=== PATIENT | male | born 1950 | race Two or more races ===

== ENCOUNTER 2019-10-11 20:33 | Inpatient (IN) | payer BC, MEDICARE ==
[~2019-10-11] VITALS: Ht 180.3 cm; Wt 111.2 kg
[2019-10-11] VITALS: BP 114/64
[2019-10-11] MEDS ORDERED: IV NORMAL SALINE 1000 ML BAG IV ONE ×2 (21:00→22:30)
--- NOTE | 2019-10-11 21:00 | NUR ---
noted pauses in breathing while asleep (o2sats maintained at 94% but briefly goes down to 89% during these pauses) supplemental low flow o2 started at 2lpm via nc pt able to sustain 98% o2sat
--- NOTE | 2019-10-11 21:00 | NUR ---
pt brought in by private rescue fr board and care Pt appears sleepy but rousable, with minimal visual tracking, does not follow commands monitored accordingly MD AT BEDSIDE PT ABLE TO SPEAK ONE UNINTELLIGBLE SINGLE WORD AND KEEPS HIS MOUTH OPEN
[2019-10-11 21:09] LABS: BASOPHILS # (AUTO) 0.1 K/uL (0.0-8.0); BASOPHILS % (AUTO) 0.7 % (0.0-2.0); HEMATOCRIT 33.7 % (36.7-47.1); HEMOGLOBIN 11.3 g/dL (12.5-16.3); LYMPHOCYTES # (AUTO) 1.3 K/uL (20.0-40.0); LYMPHOCYTES % (AUTO) 7.9 % (20.5-51.5); MEAN CORPUSCULAR HEMOGLOBIN 30.2 uug (23.8-33.4); MEAN CORPUSCULAR HGB CONC 33 g/dL (32.5-36.3); MEAN CORPUSCULAR VOLUME 90.2 fL (73.0-96.2); MONOCYTES # (AUTO) 3.5 K/uL (2.0-10.0); NEUTROPHILS # (AUTO) 11.8 K/uL (1.8-8.9); NEUTROPHILS % (AUTO) 70.4 % (38.5-71.5); PLATELET COUNT (AUTO) 282 K/uL (152-348); RED BLOOD CELL COUNT(AUTO) 3.73 MIL/uL (4.06-5.63); WHITE BLOOD COUNT (AUTO) 16.8 K/uL (3.6-10.2)
--- NOTE | 2019-10-11 21:13 | NUR ---
pt brought to [facility] acc by [facility] via susanne
[2019-10-11 21:15] LABS: CARBON DIOXIDE 30 mmol/L (21-32); CHLORIDE 106 mmol/L (98-107); GLUCOSE 272 mg/dL (74-106); POTASSIUM 4.1 mmol/L (3.5-5.1); UREA NITROGEN, BLOOD 35 mg/dL (7-18)
[2019-10-11 21:21] LABS: ETHANOL < 3 MG/DL (0-0)
[2019-10-11 21:29] LABS: ALANINE AMINOTRANSFERASE 50 U/L (16-63); ALKALINE PHOSPHATASE 85 U/L (50-136); ASPARTATE AMINOTRANSFERASE 91 U/L (15-37); BILIRUBIN,DIRECT 0.2 mg/dL (0.0-0.2); BILIRUBIN,TOTAL 0.5 mg/dL (0.2-1.0); TOTAL PROTEIN, SERUM 7.1 g/dL (6.4-8.2)
[2019-10-11 21:31] LABS: ACETAMINOPHEN < 2.0 ug/mL (10-30)
[2019-10-11 21:34] LABS: BAND % (MANUAL) 13 % (0-10); LYMPHOCYTES % (MANUAL) 10 % (20-40); MONOCYTES % (MANUAL) 20 % (2-10); NEUTROPHILS % (MANUAL) 57 % (42-75)
[2019-10-11 21:41] LABS: THYROID STIMULATING HORMONE 1.662 mIU/mL (0.358-3.740)
[2019-10-11 22:01] LABS: *BILIRUBIN,URIN 1+ (NEGATIVE); *BLOOD, URINE NEGATIVE (NEGATIVE); *CLARITY,URINE CLEAR (CLEAR); *KETONES,URINE 1+ (NEGATIVE); LEUKOCYTE ESTERASE ,URINE NEGATIVE (NEGATIVE); NITRITE, URINE NEGATIVE (NEGATIVE); PH,URINE 5.5 (5.0-8.0); UGLUCOSE NEGATIVE (NEGATIVE)
[2019-10-11 22:09] LABS: *COLOR,URINE DARK YELLOW (YELLOW)
[2019-10-11 22:10] LABS: MUCUS,URINE MODERATE /LPF (0-FEW); SQUAMOUS EPITHELIAL CELL,UR FEW /HPF (NONE SEEN); WBC,URINE 0-3 /HPF (0-3)
[2019-10-11 22:15] LABS: *AMPHETAMINE, URINE NEGATIVE (NEGATIVE); *BARBITURATE, URINE NEGATIVE (NEGATIVE); *CANNABINOID, URINE NEGATIVE (NEGATIVE); *COCCAINE, URINE NEGATIVE (NEGATIVE); *OPIATE, URINE NEGATIVE (NEGATIVE); *PHENCYCLIDINE SCREEN,URINE NEGATIVE (NEGATIVE)
--- NOTE | 2019-10-11 22:34 | NUR ---
PENDING CALL BACK FR MENDIETA ([facility])
--- NOTE | 2019-10-11 22:38 | NUR ---
CALL FOR BED
--- NOTE | 2019-10-11 22:38 | NUR ---
WIN ON THE PHONE WITH ANAM DEL ANGEL TO ADMIT TO TELE RM DX:ALTERED MENTAL STATUS/ DEHYDRATION BELONGINGS LIST CO-SIGNED
--- NOTE | 2019-10-11 22:51 | NUR ---
HAND OFF AND SBAR GIVEN TO SANJEEV RN PT OK TO ADMIT TO TELE RM 305 DX: AMS +DEHYDRATION UNDER RADHA
[2019-10-11] MEDS ORDERED: DEXTROSE 50% 50 ML DISP.SYRIN IV PRN (23:45)
[2019-10-11] MEDS ORDERED: HYDROCODONE/APAP 5-325MG TABLET PO PRN (23:45)
[2019-10-11] MEDS ORDERED: ONDANSETRON 4 MG/2 ML VIAL IV PRN (23:45)
[2019-10-11] MEDS ORDERED: Z GUARD REMEDY PASTE 57 GM TUBE TOP PRN (23:45)
[2019-10-11] MEDS ORDERED: MAGNESIUM HYDROXIDE 30 ML LIQUID UDC PO PRN (23:45)
--- NOTE | 2019-10-11 23:50 | NUR ---
RECEIVED PT IN ER VIA [facility]. UNDER THE CARE OF DR. MAXWELL GARCIA. DX; AMS. PT IN NO ACUTE DISTRESS. IV INTACT. BELONGING LIST DONE. ADMISSION PROCESS AND CARE PLAN INITIATED. SHELTER ASSESSMENT DONE. PT WOUND PHOTO TAKEN AND PUT TO CHART. SAFETY AND COMFORT PROVIDED. WILL CONTINUE TO MONITOR,,
--- NOTE | 2019-10-12 00:02 | NUR ---
Vicky multani in [facility] - 10/12/19 at 0003 by STEFANIE EPIC CALLED BACK( VERONICA) OK TO ADMIT TO TELE DX: DEHYDRATION, S/P FALL
[2019-10-12] MEDS: IV D5 1/2 NS 1000 ML 1,000 ML IV PRN (01:02)
[2019-10-12] MEDS: ACETAMINOPHEN 325 MG TABLET PO PRN (01:14)
[2019-10-12] MEDS ORDERED: LEVOFLOXACIN 750MG/D5W 750 MG in PREMIXED 1 EACH IV ONE (01:30)
[2019-10-12] MEDS ORDERED: VANCOMYCIN 1000 MG VIAL ONE (02:42)
[2019-10-12] MEDS ORDERED: LEVOFLOXACIN 750MG/D5W 150 ML IV ONE ×2 (02:43→21:24)
[2019-10-12] MEDS ORDERED: VANCOMYCIN IV 2,000 MG in IV DEXTROSE 5% 500 ML IV ONE (03:00)
[2019-10-12 04:00] VITALS: BP 111/65
[2019-10-12] MEDS: PANTOPRAZOLE SODIUM 40 MG TABLET.DR PO SCH (06:16)
[2019-10-12 06:25] LABS: BASOPHILS # (AUTO) 0.1 K/uL (0.0-8.0); BASOPHILS % (AUTO) 0.6 % (0.0-2.0); EOSINOPHILS % (AUTO) 0.1 % (0.0-7.0); HEMATOCRIT 30.5 % (36.7-47.1); LYMPHOCYTES # (AUTO) 1.1 K/uL (20.0-40.0); LYMPHOCYTES % (AUTO) 8.8 % (20.5-51.5); MEAN CORPUSCULAR HEMOGLOBIN 30.1 uug (23.8-33.4); MEAN CORPUSCULAR HGB CONC 33 g/dL (32.5-36.3); MEAN CORPUSCULAR VOLUME 92.1 fL (73.0-96.2); MONOCYTES # (AUTO) 2.3 K/uL (2.0-10.0); MONOCYTES % (AUTO) 19.4 % (0.0-11.0); NEUTROPHILS # (AUTO) 8.5 K/uL (1.8-8.9); NEUTROPHILS % (AUTO) 71.1 % (38.5-71.5); PLATELET COUNT (AUTO) 258 K/uL (152-348); RED BLOOD CELL COUNT(AUTO) 3.32 MIL/uL (4.06-5.63)
[2019-10-12] MEDS: BLOOD SUGAR DIAGNOSTIC 1 EACH STRIP VI SCH ×4 (06:35→21:43)
--- NOTE | 2019-10-12 06:45 | NUR ---
PT SLEPT INTERMITTENTLY. PRESCRIBED MEDICATION GIVEN AND PT TOLERATED IT WELL. SAFETY AND COMFORT PROVIDED. BLOOD SUGAR 257.ALL MEDS ARE MET, WILL ENDORSE TO INCOMING NURSE FOR CONTINUITY OF CARE.
[2019-10-12 07:17] LABS: BILIRUBIN,TOTAL 0.4 mg/dL (0.2-1.0); TOTAL PROTEIN, SERUM 6.1 g/dL (6.4-8.2)
[2019-10-12 07:28] LABS: BAND % (MANUAL) 4 % (0-10); NEUTROPHILS % (MANUAL) 70 % (42-75)
[2019-10-12 07:30] LABS: LYMPHOCYTES % (MANUAL) 9 % (20-40); MONOCYTES % (MANUAL) 17 % (2-10)
--- NOTE | 2019-10-12 08:00 | NUR ---
Awake, alert, O2 at 2L/NC. Tele [id number]; Sponge bath given. Repositioned comfortably
--- NOTE | 2019-10-12 09:30 | NUR ---
Patient pulled out IV site. Reinserted to left hand, covered with rolled hari dressing. Reoriented and Instructed not to pull out tubings.
--- NOTE | 2019-10-12 09:34 | NUR ---
CLINICAL PHARMACY NOTE:VANCOMYCIN DOSING S: To start vancomycin dosing on this 69 y/o male patient for suspected infection " per MD note- SIRS, likely early sepsis O: Temp 97.8 BUN/Scr 31/1.0 WBC 12 ht 180cm wt 105 kg Plan Patient received vanco 2gm IVPB x1 today at 0400. Will start vanco 1750mg IVPB q15h for predicted vanco trough level of 16 mcg/ml at steady state. 1st dose today at 1800. Plan to check vanco trough level before 4th dose (not yet ordered). Will monitor renal function & adjust the dose if needed. Will follow
[2019-10-12] MEDS: LEVETIRACETAM IV 500 MG in IV DEXTROSE 5% 100 ML IV SCH ×2 (10:24→21:26)
[2019-10-12] MEDS: INSULIN REGULAR, HUMAN 300 UNIT/3 ML VIAL SQ PRN ×4 (10:26→21:40)
[2019-10-12 11:58] VITALS: BP 107/60
--- NOTE | 2019-10-12 12:00 | NUR ---
Placed on 1st step mattress. Repositioned comfortably
--- NOTE | 2019-10-12 13:45 | NUR ---
Patient pulled out again the IV. Jay CORNEJO informed with orders for bilateral hand mittens. Saline lock reinserted to left wrist.
--- NOTE | 2019-10-12 15:00 | NUR ---
ST justen page. Mervat laughlin Puree diet
[2019-10-12 15:34] VITALS: BP 110/65
[2019-10-12] MEDS: VANCOMYCIN IV 1,750 MG in IV DEXTROSE 5% 500 ML IV SCH (17:56)
--- NOTE | 2019-10-12 18:35 | NUR ---
Assisted with meal but refused to eat. Bilateral hands mittens monitored per protocol. Repositioned in bed comfortably.
[2019-10-12 20:00] VITALS: BP 113/56
[2019-10-12] MEDS: LEVOFLOXACIN 750MG/D5W 750 MG in PREMIXED 1 EACH IV SCH (21:25)
--- NOTE | 2019-10-12 21:45 | NUR ---
levquin 750 mg given iv. duplicate order on emar 750 mg given
--- NOTE | 2019-10-12 21:49 | NUR ---
brief changed pericare provided.
[2019-10-13] VITALS: BP 102/58
[2019-10-13 04:00] VITALS: BP 108/49
[2019-10-13 05:18] LABS: BASOPHILS # (AUTO) 0.1 K/uL (0.0-8.0); BASOPHILS % (AUTO) 0.8 % (0.0-2.0); EOSINOPHILS # (AUTO) 0.3 K/uL (0.0-0.7); EOSINOPHILS % (AUTO) 2.8 % (0.0-7.0); HEMATOCRIT 29.2 % (36.7-47.1); HEMOGLOBIN 9.7 g/dL (12.5-16.3); LYMPHOCYTES # (AUTO) 1.4 K/uL (20.0-40.0); LYMPHOCYTES % (AUTO) 14.1 % (20.5-51.5); MEAN CORPUSCULAR HEMOGLOBIN 30.2 uug (23.8-33.4); MEAN CORPUSCULAR HGB CONC 33 g/dL (32.5-36.3); MEAN CORPUSCULAR VOLUME 90.8 fL (73.0-96.2); MONOCYTES # (AUTO) 1.7 K/uL (2.0-10.0); MONOCYTES % (AUTO) 16.6 % (0.0-11.0); NEUTROPHILS # (AUTO) 6.7 K/uL (1.8-8.9); NEUTROPHILS % (AUTO) 65.7 % (38.5-71.5); PLATELET COUNT (AUTO) 276 K/uL (152-348); RED BLOOD CELL COUNT(AUTO) 3.22 MIL/uL (4.06-5.63); WHITE BLOOD COUNT (AUTO) 10.2 K/uL (3.6-10.2)
[2019-10-13 05:25] LABS: CREATININE 0.8 mg/dL (0.6-1.3); POTASSIUM 3.5 mmol/L (3.5-5.1)
[2019-10-13 05:47] LABS: BAND % (MANUAL) 1 % (0-10); LYMPHOCYTES % (MANUAL) 18 % (20-40); MONOCYTES % (MANUAL) 14 % (2-10); NEUTROPHILS % (MANUAL) 67 % (42-75)
[2019-10-13] MEDS: PANTOPRAZOLE SODIUM 40 MG TABLET.DR PO SCH (06:51)
--- NOTE | 2019-10-13 08:00 | NUR ---
Sleeping, appears comfortable. IVF infusing Addendum: 10/13/19 at 1935 by NAA ALFORD RN Noted IV site infiltrated. Left arm swollen and blister open/skin tear.
[2019-10-13] MEDS: LEVETIRACETAM IV 500 MG in IV DEXTROSE 5% 100 ML IV SCH ×2 (10:10→21:58)
[2019-10-13] MEDS: BLOOD SUGAR DIAGNOSTIC 1 EACH STRIP VI SCH ×4 (10:10→21:58)
[2019-10-13] MEDS: VANCOMYCIN IV 1,750 MG in IV DEXTROSE 5% 500 ML IV SCH ×2 (10:21→22:51)
[2019-10-13 11:25] VITALS: BP 109/61
--- NOTE | 2019-10-13 12:00 | NUR ---
Assisted with meal, eating fairly
[2019-10-13] MEDS: INSULIN REGULAR, HUMAN 300 UNIT/3 ML VIAL SQ PRN ×3 (12:31→22:09)
--- NOTE | 2019-10-13 12:34 | NUR ---
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 RECOMMEND SURGICAL CONSULT AND DPM CONSULT. DR DARRIAN BLACK AND DR WILLARD NOTIFIED OF CONSULT REQUESTS. PT IS INCONTINENT. PT ON FIRST STEP [facility]. WILL SEE PRN. VALLE IN AGREEMENT WITH PLAN OF CARE. Addendum: 10/13/19 at 1235 by JOSH CHASE RN Amended: Links added.
--- NOTE | 2019-10-13 13:39 | NUR ---
CLINICAL PHARMACY NOTE:VANCOMYCIN DOSING S: To Continue vancomycin dosing on this 69 y/o male patient for suspected infection " per MD note- SIRS, likely early sepsis O: Temp 98.3 BUN/Scr 19/0.8 WBC 10.2 ht 180cm wt 105 kg Plan Since renal function is improved, will increase dose to 1750mg iv q12hrs(first dose today at 1000) and draw trough by 4th dose(not ordered yet) for expected trough around 15. Will monitor daily.
[2019-10-13 16:21] VITALS: BP 94/49
--- NOTE | 2019-10-13 19:12 | NUR ---
Patient sleeping, can not stay awake for dinner, did not further give the food.
--- NOTE | 2019-10-13 19:55 | NUR ---
Received patient lying in bed sleeping. IV Fluids running. Bed alarm on. Restraint mittens on.
[2019-10-13 20:00] VITALS: BP 94/54
[2019-10-13] MEDS: IV D5 1/2 NS 1000 ML 1,000 ML IV PRN (20:33)
[2019-10-13] MEDS: LEVOFLOXACIN 750MG/D5W 750 MG in PREMIXED 1 EACH IV SCH (22:20)
--- NOTE | 2019-10-13 23:00 | NUR ---
RECEIVED HAND OFF REPORT FROM DORENE JHAVERI. PATIENT RECEIVED INTO CARE SITTING UP IN BED, RESTING COMFORTABLY. ALL SAFETY, SEIZURE, AND FALL PRECAUTION MEASURSES ARE IN PLACE. CALL LIGHT AND PERSONAL ITEMS ARE WITHIN REACH AT ALL TIMES. WILL CONTINUE TO MONITOR AND ASSESS.
[2019-10-14 05:33] LABS: BASOPHILS # (AUTO) 0.1 K/uL (0.0-8.0); BASOPHILS % (AUTO) 0.9 % (0.0-2.0); EOSINOPHILS # (AUTO) 0.6 K/uL (0.0-0.7); EOSINOPHILS % (AUTO) 6.6 % (0.0-7.0); HEMATOCRIT 29.5 % (36.7-47.1); HEMOGLOBIN 9.8 g/dL (12.5-16.3); LYMPHOCYTES # (AUTO) 1.6 K/uL (20.0-40.0); LYMPHOCYTES % (AUTO) 18.3 % (20.5-51.5); MEAN CORPUSCULAR HEMOGLOBIN 30.1 uug (23.8-33.4); MEAN CORPUSCULAR HGB CONC 33 g/dL (32.5-36.3); MEAN CORPUSCULAR VOLUME 90.3 fL (73.0-96.2); MONOCYTES # (AUTO) 1.2 K/uL (2.0-10.0); MONOCYTES % (AUTO) 13.5 % (0.0-11.0); NEUTROPHILS # (AUTO) 5.3 K/uL (1.8-8.9); NEUTROPHILS % (AUTO) 60.7 % (38.5-71.5); PLATELET COUNT (AUTO) 337 K/uL (152-348); RED BLOOD CELL COUNT(AUTO) 3.27 MIL/uL (4.06-5.63); WHITE BLOOD COUNT (AUTO) 8.8 K/uL (3.6-10.2)
[2019-10-14 05:42] LABS: CARBON DIOXIDE 30 mmol/L (21-32); CHLORIDE 106 mmol/L (98-107); CREATININE 0.6 mg/dL (0.6-1.3); GLUCOSE 183 mg/dL (74-106); MAGNESIUM 1.6 mg/dL (1.8-2.4); PHOSPHOROUS 3.3 mg/dL (2.5-4.9); POTASSIUM 3.7 mmol/L (3.5-5.1); UREA NITROGEN, BLOOD 16 mg/dL (7-18)
[2019-10-14 05:48] VITALS: BP 106/58
[2019-10-14] MEDS: PANTOPRAZOLE SODIUM 40 MG TABLET.DR PO SCH (06:09)
[2019-10-14] MEDS: BLOOD SUGAR DIAGNOSTIC 1 EACH STRIP VI SCH ×4 (06:17→21:47)
--- NOTE | 2019-10-14 06:51 | NUR ---
PATIENT SLEPT INTERMITTENTLY THROUGHOUT NIGHT WITH NO COMPLAINTS OF PAIN OR DISCOMFORT AND SIGNS/SYMPTOMS OF ACUTE DISTRESS OR DISCOMFORT NOTED/OBSERVED BY NURSE. ALL PRESCRIBED IV MEDICATIONS PROVIDED ORDERED AND TOLERATED WELL BY PATIENT, WITH NO ADVERSE SIDE EFFECTS VERBALIZED BY PATIENT OR NOTED/OBSERVED BY NURSE. ALL PRESCRIBED ORAL MEDICATIONS PROVIDED ORDERED AND TOLERATED WELL BY PATIENT WITH NO ADVERSE SIDE EFFECTS VERBALIZED BY PATIENT OR NOTED/OBSERVED BY NURSE. ALL PATIENT NEEDS MET PROMPTLY AND PATIENT IS WARM, DRY, AND COMFORTABLE. CALL LIGHT AND PERSONAL ITEMS REMAIN WITHIN REACH. SAFETY, SEIZURE, AND FALL PRECAUTION MEASURES REMAIN IN PLACE.
[2019-10-14] MEDS: INSULIN REGULAR, HUMAN 300 UNIT/3 ML VIAL SQ PRN ×4 (08:58→21:48)
[2019-10-14] MEDS: LEVETIRACETAM IV 500 MG in IV DEXTROSE 5% 100 ML IV SCH (09:08)
[2019-10-14] MEDS: VANCOMYCIN IV 1,750 MG in IV DEXTROSE 5% 500 ML IV SCH ×2 (10:11→23:15)
[2019-10-14 11:31] VITALS: BP 112/63
--- NOTE | 2019-10-14 13:22 | NUR ---
CLINICAL PHARMACY NOTE:VANCOMYCIN DOSING S: To Continue vancomycin dosing on this 69 y/o male patient for suspected infection " per MD note- SIRS, likely early sepsis O: Temp 98.1 BUN/Scr 16/0.6 WBC 8.8 ht 180cm wt 105 kg Plan Will continue Vancomycin 1750mg iv q12hrs(third dose today at 1000) and draw trough by 4th dose(ordered for tonight at 2130, will endorse nurse to hold for over 20) for expected trough around 15. Will monitor daily.
--- NOTE | 2019-10-14 14:10 | NUR ---
MED SURG: Nursing Notes: Pull Out IV: Patient is confused, impaired judgment, took his mittens off and pulled out his IV, inserted new heplock at right hand, angiocath 22G, 1", intact and patent, continue to monitor patient.
[2019-10-14 15:53] VITALS: BP 96/49
[2019-10-14] MEDS: MAGNESIUM SULFATE/D5W 100 ML IV SCH ×2 (16:43→18:03)
[2019-10-14] MEDS ORDERED: Medication Not On Formulary EA (Metformin Hcl 1,000 MG) PO SCH (17:00)
[2019-10-14] MEDS: METFORMIN HCL 500 MG TABLET PO SCH (17:24)
[2019-10-14] MEDS: glipiZIDE 5 MG TABLET PO SCH (17:24)
[2019-10-14] MEDS: DIVALPROEX 500 MG TABLET.DR PO SCH (17:24)
--- NOTE | 2019-10-14 19:30 | NUR ---
Received patient resting in bed, easily to arouse. A/Ox1. No acute distress noted. No complaints of pain or SOB at this time. IVF running on the right hand. Mittens applied, per report patient is pulling out IV. Will do Q2H checks. Patient is on first step mattress. Vanco trough to be drawn at 2130. Safety measures initiated. Bed is low and locked, call light within reach. Will continue to monitor.
[2019-10-14 20:48] VITALS: BP 93/46
[2019-10-14] MEDS: LEVETIRACETAM 500 MG TABLET PO SCH (21:36)
[2019-10-14] MEDS: LEVOFLOXACIN 750MG/D5W 750 MG in PREMIXED 1 EACH IV SCH (21:41)
[2019-10-15] MEDS: ZOLPIDEM 5 MG TABLET PO PRN ×2 (00:43→22:57)
[2019-10-15] MEDS: IV D5 1/2 NS 1000 ML 1,000 ML IV PRN ×2 (03:32→18:00)
[2019-10-15 06:09] LABS: BASOPHILS # (AUTO) 0.1 K/uL (0.0-8.0); BASOPHILS % (AUTO) 0.6 % (0.0-2.0); EOSINOPHILS # (AUTO) 0.4 K/uL (0.0-0.7); EOSINOPHILS % (AUTO) 4.4 % (0.0-7.0); HEMATOCRIT 26.3 % (36.7-47.1); LYMPHOCYTES # (AUTO) 1.9 K/uL (20.0-40.0); LYMPHOCYTES % (AUTO) 19.9 % (20.5-51.5); MEAN CORPUSCULAR HEMOGLOBIN 30.5 uug (23.8-33.4); MEAN CORPUSCULAR HGB CONC 34 g/dL (32.5-36.3); MEAN CORPUSCULAR VOLUME 89.6 fL (73.0-96.2); MONOCYTES # (AUTO) 1.3 K/uL (2.0-10.0); MONOCYTES % (AUTO) 13.5 % (0.0-11.0); NEUTROPHILS % (AUTO) 61.6 % (38.5-71.5); PLATELET COUNT (AUTO) 373 K/uL (152-348); RED BLOOD CELL COUNT(AUTO) 2.94 MIL/uL (4.06-5.63); WHITE BLOOD COUNT (AUTO) 9.7 K/uL (3.6-10.2)
[2019-10-15 06:27] LABS: CREATININE 0.8 mg/dL (0.6-1.3); MAGNESIUM 1.8 mg/dL (1.8-2.4); PHOSPHOROUS 3.1 mg/dL (2.5-4.9); POTASSIUM 3.7 mmol/L (3.5-5.1)
[2019-10-15] MEDS: PANTOPRAZOLE SODIUM 40 MG TABLET.DR PO SCH (06:30)
[2019-10-15] MEDS: BLOOD SUGAR DIAGNOSTIC 1 EACH STRIP VI SCH ×4 (06:30→21:39)
[2019-10-15 06:50] VITALS: BP 99/51
--- NOTE | 2019-10-15 07:00 | NUR ---
A/Ox2. No acute distress noted. No complaints of pain or SOB at this time. IVF running on the right hand. Mittens applied, per report patient is pulling out IV. Will do Q2H checks. Patient is on first step mattress. Safety measures initiated. Bed is low and locked, call light within reach. Will continue to monitor.
[2019-10-15] MEDS: LEVETIRACETAM 500 MG TABLET PO SCH ×2 (08:17→21:31)
[2019-10-15] MEDS: DIVALPROEX 500 MG TABLET.DR PO SCH ×2 (08:17→17:13)
[2019-10-15] MEDS: MULTIVITAMINS,THERAPEUTIC TABLET PO SCH (08:17)
[2019-10-15] MEDS: CHOLECALCIFEROL 1,000 UNIT TABLET PO SCH (08:17)
[2019-10-15] MEDS: ASPIRIN 81 MG TAB.CHEW PO SCH (08:18)
[2019-10-15] MEDS: glipiZIDE 5 MG TABLET PO SCH ×2 (08:18→16:41)
[2019-10-15] MEDS: METFORMIN HCL 500 MG TABLET PO SCH ×2 (08:18→17:12)
[2019-10-15] MEDS: VENLAFAXINE XR 37.5 MG CAP.SR.24H PO SCH (08:18)
[2019-10-15] MEDS ORDERED: Medication Not On Formulary EA (Multivitamins (Multivitamin) 1 TAB) PO SCH (09:00)
[2019-10-15] MEDS: VANCOMYCIN IV 1,750 MG in IV DEXTROSE 5% 500 ML IV SCH ×2 (10:09→22:51)
--- NOTE | 2019-10-15 11:07 | NUR ---
CLINICAL PHARMACY NOTE:VANCOMYCIN DOSING S: To Continue vancomycin dosing on this 69 y/o male patient for suspected infection " per MD note- SIRS, likely early sepsis O: Temp 98.6 BUN/Scr 12/0.8 WBC 9.7 ht 180cm wt 105 kg Trough 10/14 @2130: 15.7 Plan As trough within therapeutic range, will continue vanco regimen of 1750mg q12hr for now. Will consider adjusting or retaking level if condition were to change, otherwise will keep same scheduled and follow daily.
[2019-10-15 11:08] VITALS: BP 107/60
[2019-10-15] MEDS: INSULIN REGULAR, HUMAN 300 UNIT/3 ML VIAL SQ PRN ×2 (12:12→16:44)
[2019-10-15 15:19] VITALS: BP 106/52
--- NOTE | 2019-10-15 19:00 | NUR ---
A/Ox2. No acute distress noted. No complaints of pain or SOB at this time. IVF running on the right hand. Mittens INTACT WITH INTACT SKIN UNDER. DONE Q2H checks. WOUND CARE IS DONE SAFETY MAINTAINED Patient is on first step mattress. Bed is low and locked, call light within reach.
--- NOTE | 2019-10-15 19:30 | NUR ---
Received patient resting in bed, easily to arouse. A/Ox2. No signs of acute distress noted. No complaints of pain or SOB. Vitals WNL. IVF running on the right hand, mittens applied. Patient on air mattress. Safety measures initiated. Bed is low and locked, call light within reach. Will continue to monitor.
[2019-10-15 19:46] VITALS: BP 110/59
[2019-10-15] MEDS ORDERED: LEVOFLOXACIN 750 MG TABLET PO SCH (21:00)
--- NOTE | 2019-10-15 23:01 | NUR ---
Patient took off mittens twice, pulled out IV. Was able to put new IV in on right forearm, with good blood return. Will continue to monitor.
[2019-10-16] MEDS: ACETAMINOPHEN 325 MG TABLET PO PRN ×2 (03:33→17:56)
--- NOTE | 2019-10-16 03:40 | NUR ---
Patient complaining of pain to his right foot, can not rate or described pain. Administered PRN Tylenol. Will continue to monitor.
[2019-10-16 05:19] VITALS: BP 120/59
--- NOTE | 2019-10-16 06:21 | NUR ---
Dressing change to sacral wound changed
[2019-10-16] MEDS: PANTOPRAZOLE SODIUM 40 MG TABLET.DR PO SCH (06:23)
[2019-10-16] MEDS: BLOOD SUGAR DIAGNOSTIC 1 EACH STRIP VI SCH ×3 (06:32→17:23)
--- NOTE | 2019-10-16 07:30 | NUR ---
Awake, alert, oriented x 2, pleasant. With bilateral hand mittens. IVF infusing
[2019-10-16] MEDS: METFORMIN HCL 500 MG TABLET PO SCH ×2 (09:04→17:43)
[2019-10-16] MEDS: LEVETIRACETAM 500 MG TABLET PO SCH (09:05)
[2019-10-16] MEDS: VENLAFAXINE XR 37.5 MG CAP.SR.24H PO SCH (09:05)
[2019-10-16] MEDS: ASPIRIN 81 MG TAB.CHEW PO SCH (09:05)
[2019-10-16] MEDS: DIVALPROEX 500 MG TABLET.DR PO SCH ×2 (09:05→17:23)
[2019-10-16] MEDS: glipiZIDE 5 MG TABLET PO SCH ×2 (09:05→17:23)
[2019-10-16] MEDS: MULTIVITAMINS,THERAPEUTIC TABLET PO SCH (09:06)
[2019-10-16] MEDS: CHOLECALCIFEROL 1,000 UNIT TABLET PO SCH (09:06)
--- NOTE | 2019-10-16 09:07 | NUR ---
CLINICAL PHARMACY NOTE:VANCOMYCIN DOSING S: To Continue vancomycin dosing on this 69 y/o male patient for suspected infection " per MD note- SIRS, likely early sepsis O: Temp 97.6 BUN/Scr 12/0.8 (10/15) WBC 9.7 (10/15) ht 180cm wt 105 kg Trough 10/14 @2130: 15.7 Plan Will continue vanco regimen of 1750mg q12hr for now as last trough was within range. Will consider adjusting or retaking level if condition were to change, otherwise will keep same scheduled and follow daily.
[2019-10-16] MEDS: INSULIN REGULAR, HUMAN 300 UNIT/3 ML VIAL SQ PRN ×2 (09:08→12:40)
[2019-10-16] MEDS: VANCOMYCIN IV 1,750 MG in IV DEXTROSE 5% 500 ML IV SCH (09:17)
[2019-10-16 11:58] VITALS: BP 119/65
--- NOTE | 2019-10-16 15:03 | NUR ---
WOUND CARE CONSULT: PT SEEN FOR LEFT ARM BLISTERS/LESIONS. RECOMMENDATIONS MADE FOR SKIN PROTECTION AND WOUND CARE. DISCUSSED WITH NURSING STAFF AND DR DARRIAN BLACK, WOUND SURGEON CURRENTLY ON CASE. WILL SEE PRN. VALLE IN AGREEMENT WITH PLAN OF CARE. [facility] Addendum: 10/16/19 at 1504 by JOSH CHASE RN Amended: Links added.
[2019-10-16 15:30] VITALS: BP 96/49
--- NOTE | 2019-10-16 18:14 | NUR ---
With discharge order to the [facility], arranged by PAYAM Smith. 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 Saline lock removed. Photos taken of wounds.
--- NOTE | 2019-10-16 19:45 | NUR ---
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 VS WNL. REPORT GIVEN. PATIENT LEFT FACILITY IN STABLE CONDITION.
== END 2019-10-16 19:45 | disposition hospice, home (50) | DRG 871 ==
LOC: ER 20:39 → TELE3 23:07 → MEDSURG3 10-13 11:01
PROVIDERS: ADMIT Hospitalist; ATTEND Hospitalist
DX: A41.9 Sepsis, unspecified organism (principal); G93.41 Metabolic encephalopathy; E43 Unspecified severe protein-calorie malnutrition; R65.20 Severe sepsis without septic shock; E11.65 Type 2 diabetes mellitus with hyperglycemia; G93.89 Other specified disorders of brain; Z68.34 Body mass index [BMI] 34.0-34.9, adult; E78.5 Hyperlipidemia, unspecified; E11.42 Type 2 diabetes mellitus with diabetic polyneuropathy; L89.626 Pressure-induced deep tissue damage of left heel; L89.520 Pressure ulcer of left ankle, unstageable; L89.150 Pressure ulcer of sacral region, unstageable; Z86.61 Personal history of infections of the central nervous system; G40.909 Epilepsy, unspecified, not intractable, without status epilepticus; F03.90 Unspecified dementia, unspecified severity, without behavioral disturbance, psychotic disturbance, mood disturbance, and anxiety; E86.0 Dehydration; E11.51 Type 2 diabetes mellitus with diabetic peripheral angiopathy without gangrene; D64.9 Anemia, unspecified; Z79.899 Other long term (current) drug therapy; Z79.84 Long term (current) use of oral hypoglycemic drugs; N28.9 Disorder of kidney and ureter, unspecified
CPT/HCPCS: 36415; 70030-TC; 70450; 71045; 80164; 80307; 83605; 83690; 83735; 84100; 84443; 85025; 85730; 87040; 87086; 87400; 93005; 93880; A4663; C1758; G0378; G0480; G0480-TC; J1815; J1953; J1956; J3370; J3475; J3490; J7030; J7060